=== PATIENT | male | born 1930 | race Caucasian/White ===

== ENCOUNTER 2016-11-24 14:58 | Inpatient (IN) | payer MEDICARE, BC ==
[~2016-11-24 14:58] MED LIST: ARICEPT5 M1 PO; ASPIRIN EC81 MG PO; CALCIUM 600 +1 EA10 PO; COQ-10100 M1 PO; DUREZOL5 M1 LEFT EYE; GAS-X80 M1 PO; ILEVRO1.7 ML LEFT EYE; LEVAQUIN750 M1 PO; NAMENDA10 M1 PO; NEXIUM 24HR22.3 MG PO; OMEGA 3 FISH O1 EACH PO; PRAVASTATIN SOD10 M1 PO; PRINIVIL20 M1 PO; SENIOR TABS1 EACH PO; SOY LECITHIN PO; TAMIFLU75 MG/CAP PO; VIGAMOX3 M1 LEFT EYE; VITAMIN D31000 UNI3 PO
[2016-11-24] MEDS ORDERED: VITAMIN B-121000 MC1 PO (15:34)
[2016-11-24] MEDS ORDERED: DIGESTIVE ENZY1 EAC3 PO (15:35)
[2016-11-24 16:17] LABS: URINE LEUKOCYTE ESTERASE POSITIVE (NEG); URINE PROTEIN MODERATE (NEG); URINE SPECIFIC GRAVITY 1.015 (1.003-1.030)
[2016-11-24 16:22] LABS: BASO % 0.1 % (0-2); EOS % 0.3 % (0-7); HCT-HEMATOCRIT 41.8 % (36.0-53.5); HGB-HEMOGLOBIN 14.1 gm/dl (13.5-17.0); IMMATURE GRANULOCYTES ABSOLUTE 0.05 tho/cmm (0-0.03); IMMATURE GRANULOCYTES PERCENT 0.4 % (0-0.3); LYMPH % 8.7 % (20-45); LYMPH ABSOLUTE COUNT 1.2 tho/cmm (0.8-4.5); MCH (MEAN CORPUSCULAR HGB) 32.8 pg (28.0-32.0); MCHC MEAN CORPUSCULAR HGB CONC 33.7 % (32.0-36.0); MCV (MEAN CELL VOLUME) 97.2 fl (82.0-96.0); MEAN PLATELET VOLUME 11.8 cmc (9.4-12.4); MONO % 10.3 % (0-12); MONOCYTE ABSOLUTE COUNT 1.4 tho/cmm (0.0-1.2); NEUTROPHIL ABSOLUTE COUNT 10.7 tho/cmm (1.6-8.0); NEUTROPHIL-AUTOMATED 10.7 tho/cmm (1.6-8.0); NEUTROPHILS % 80.2 % (40-80); PLATELET COUNT 191 tho/cmm (150-450); RED CELL DISTRIBUTION WIDTH 13.7 % (12.4-16.4); WHITE BLOOD COUNT 13.4 tho/cmm (4.0-10.0)
[2016-11-24 16:27] LABS: URINE APPEARANCE CLEAR; URINE BILIRUBIN SMALL (NEG); URINE BLOOD SMALL (NEG); URINE COLOR YELLOW; URINE GLUCOSE (UA) SMALL (NEG); URINE KETONE MODERATE (NEG); URINE NITRITE NEGATIVE (NEG)
[2016-11-24 16:37] LABS: ALB/GLOB RATIO 0.6 (0.8-2.0); ALBUMIN 3.2 g/dl (3.5-5.0); ALKALINE PHOSPHATASE 77 U/L (33-138); ALT/SGPT 17 U/L (12-78); ANION GAP 11 mmol/L (0-20); AST/SGOT 20 U/L (10-40); BILIRUBIN,TOTAL 1.1 mg/dl (0.0-1.5); BLOOD UREA NITROGEN 18 mg/dl (6-24); CALCIUM 9.2 mg/dl (8.5-10.5); CARBON DIOXIDE-VENOUS 29 mmol/L (22-32); CHLORIDE 104 mmol/l (96-110); CREATININE 1.15 mg/dl (0.60-1.30); GLUCOSE 140 mg/dL (70-110); LIPASE 87 U/L (73-393); POTASSIUM 3.6 mmol/L (3.7-5.1); SODIUM 140 mmol/L (135-145); eGFR VALUE FOR BLACK 67 mL/Min
[2016-11-24 16:44] LABS: URINE EPITHELIAL CELLS 0 /[HPF] (0-10); URINE MUCUS 2+; URINE RBC 0 /[HPF] (0-5); URINE WBC 0-3 /[HPF] (0-5)
[2016-11-25 05:52] LABS: BASO % 0.1 % (0-2); EOS % 2.4 % (0-7); EOSINOPHIL ABSOLUTE COUNT 0.2 tho/cmm (0.0-0.7); HCT-HEMATOCRIT 36.9 % (36.0-53.5); HGB-HEMOGLOBIN 12.5 gm/dl (13.5-17.0); IMMATURE GRANULOCYTES ABSOLUTE 0.02 tho/cmm (0-0.03); IMMATURE GRANULOCYTES PERCENT 0.2 % (0-0.3); LYMPH ABSOLUTE COUNT 1.2 tho/cmm (0.8-4.5); MCH (MEAN CORPUSCULAR HGB) 32.6 pg (28.0-32.0); MCHC MEAN CORPUSCULAR HGB CONC 33.9 % (32.0-36.0); MCV (MEAN CELL VOLUME) 96.3 fl (82.0-96.0); MEAN PLATELET VOLUME 11.6 cmc (9.4-12.4); MONO % 11.1 % (0-12); MONOCYTE ABSOLUTE COUNT 1.1 tho/cmm (0.0-1.2); NEUTROPHIL ABSOLUTE COUNT 7.3 tho/cmm (1.6-8.0); NEUTROPHIL-AUTOMATED 7.3 tho/cmm (1.6-8.0); NEUTROPHILS % 74.2 % (40-80); PLATELET COUNT 168 tho/cmm (150-450); RED BLOOD COUNT 3.83 mil/cmm (4.40-5.70); RED CELL DISTRIBUTION WIDTH 13.6 % (12.4-16.4); WHITE BLOOD COUNT 9.8 tho/cmm (4.0-10.0)
[2016-11-25 06:10] LABS: ALB/GLOB RATIO 0.7 (0.8-2.0); ALBUMIN 2.6 g/dl (3.5-5.0); ALKALINE PHOSPHATASE 76 U/L (33-138); ALT/SGPT 16 U/L (12-78); ANION GAP 12 mmol/L (0-20); AST/SGOT 19 U/L (10-40); BILIRUBIN,TOTAL 1.4 mg/dl (0.0-1.5); BLOOD UREA NITROGEN 14 mg/dl (6-24); CALCIUM 8.1 mg/dl (8.5-10.5); CARBON DIOXIDE-VENOUS 26 mmol/L (22-32); CHLORIDE 107 mmol/l (96-110); CREATININE 1.03 mg/dl (0.60-1.30); GLUCOSE 128 mg/dL (70-110); POTASSIUM 3.6 mmol/L (3.7-5.1); SODIUM 141 mmol/L (135-145); eGFR VALUE FOR BLACK 76 mL/Min
[2016-11-26 06:17] LABS: ALB/GLOB RATIO 0.6 (0.8-2.0); ALBUMIN 2.3 g/dl (3.5-5.0); ALKALINE PHOSPHATASE 62 U/L (33-138); ALT/SGPT 314 U/L (12-78); ANION GAP 10 mmol/L (0-20); AST/SGOT 529 U/L (10-40); BILIRUBIN,TOTAL 0.6 mg/dl (0.0-1.5); BLOOD UREA NITROGEN 12 mg/dl (6-24); CALCIUM 7.8 mg/dl (8.5-10.5); CARBON DIOXIDE-VENOUS 28 mmol/L (22-32); CHLORIDE 108 mmol/l (96-110); CREATININE 1.02 mg/dl (0.60-1.30); GLUCOSE 163 mg/dL (70-110); MAGNESIUM 2.1 mg/dl (1.3-2.6); POTASSIUM 4.1 mmol/L (3.7-5.1); SODIUM 142 mmol/L (135-145); eGFR VALUE FOR BLACK 77 mL/Min
[2016-11-26 06:19] LABS: HCT-HEMATOCRIT 32.7 % (36.0-53.5); HGB-HEMOGLOBIN 11.1 gm/dl (13.5-17.0); IMMATURE GRANULOCYTES ABSOLUTE 0.03 tho/cmm (0-0.03); IMMATURE GRANULOCYTES PERCENT 0.3 % (0-0.3); LYMPH % 6.5 % (20-45); LYMPH ABSOLUTE COUNT 0.7 tho/cmm (0.8-4.5); MCH (MEAN CORPUSCULAR HGB) 32.6 pg (28.0-32.0); MCHC MEAN CORPUSCULAR HGB CONC 33.9 % (32.0-36.0); MCV (MEAN CELL VOLUME) 96.2 fl (82.0-96.0); MEAN PLATELET VOLUME 11.7 cmc (9.4-12.4); MONO % 6.9 % (0-12); MONOCYTE ABSOLUTE COUNT 0.8 tho/cmm (0.0-1.2); NEUTROPHIL ABSOLUTE COUNT 9.7 tho/cmm (1.6-8.0); NEUTROPHIL-AUTOMATED 9.7 tho/cmm (1.6-8.0); NEUTROPHILS % 86.3 % (40-80); PLATELET COUNT 162 tho/cmm (150-450); RED CELL DISTRIBUTION WIDTH 13.5 % (12.4-16.4); WHITE BLOOD COUNT 11.2 tho/cmm (4.0-10.0)
--- NOTE | 2016-11-26 19:55 | NUR ---
VN/LEADER ROUNDING NOTE-PATIENT DOING FINE LAYING IN BED COMFORTABLY. HE STATES HE HAS REALLY HAD NO PAIN AND IS DOING FINE. I CONFIRMED THAT HE STILL HAS HIS CARLOS DRAIN AND HE HAS NO QUESTIONS OR CONCERNS AT THIS TIME. ASKED IF ANYTHING THAT WE CAN DO TO MAKE SURE HIS STAY HERE IS EXCELLENT AND HE STATES IT HAS BEEN GREAT SO FAR. HE DID SAY HE NEEDED ASSISTANCE TO THE BATHROOM SO I PAGED NEREIDA THE AIDE FOR HIM.
[2016-11-27 05:55] LABS: BASO % 0.1 % (0-2); EOS % 0.6 % (0-7); EOSINOPHIL ABSOLUTE COUNT 0.1 tho/cmm (0.0-0.7); HCT-HEMATOCRIT 33.8 % (36.0-53.5); HGB-HEMOGLOBIN 11.1 gm/dl (13.5-17.0); IMMATURE GRANULOCYTES ABSOLUTE 0.02 tho/cmm (0-0.03); IMMATURE GRANULOCYTES PERCENT 0.2 % (0-0.3); LYMPH % 11.9 % (20-45); LYMPH ABSOLUTE COUNT 1.2 tho/cmm (0.8-4.5); MCHC MEAN CORPUSCULAR HGB CONC 32.8 % (32.0-36.0); MCV (MEAN CELL VOLUME) 97.4 fl (82.0-96.0); MEAN PLATELET VOLUME 11.4 cmc (9.4-12.4); MONO % 10.1 % (0-12); NEUTROPHIL ABSOLUTE COUNT 7.9 tho/cmm (1.6-8.0); NEUTROPHIL-AUTOMATED 7.9 tho/cmm (1.6-8.0); NEUTROPHILS % 77.1 % (40-80); PLATELET COUNT 172 tho/cmm (150-450); RED BLOOD COUNT 3.47 mil/cmm (4.40-5.70); RED CELL DISTRIBUTION WIDTH 13.8 % (12.4-16.4); WHITE BLOOD COUNT 10.3 tho/cmm (4.0-10.0)
[2016-11-27 06:24] LABS: ALB/GLOB RATIO 0.7 (0.8-2.0); ALBUMIN 2.6 g/dl (3.5-5.0); ALKALINE PHOSPHATASE 85 U/L (33-138); ALT/SGPT 287 U/L (12-78); ANION GAP 10 mmol/L (0-20); AST/SGOT 292 U/L (10-40); BILIRUBIN,TOTAL 0.8 mg/dl (0.0-1.5); BLOOD UREA NITROGEN 9 mg/dl (6-24); CALCIUM 8.2 mg/dl (8.5-10.5); CARBON DIOXIDE-VENOUS 31 mmol/L (22-32); CHLORIDE 108 mmol/l (96-110); CREATININE 1.18 mg/dl (0.60-1.30); GLUCOSE 90 mg/dL (70-110); POTASSIUM 3.8 mmol/L (3.7-5.1); SODIUM 145 mmol/L (135-145); eGFR VALUE FOR BLACK 65 mL/Min
[2016-11-27] MEDS ORDERED: AUGMENTIN 875-1 EAC2 PO (12:02)
[2016-11-27] MEDS ORDERED: NORCO 5-325 TA1 EACH PO (12:02)
== END 2016-11-27 13:45 | disposition home health service (06) | DRG 418 ==
LOC: EDMED 14:58 → EMR2 19:37 → 5WD 21:15 → ORW 11-25 09:54 → 5WD 11-25 13:20
PROVIDERS: Emergency Medicine; Internal Medicine; Surgery; ADMIT Hospitalist
PROC: 0FT44ZZ Resection of Gallbladder, Percutaneous Endoscopic Approach (ICD-10-PCS; principal; 2016-11-25)
DX: K81.0 Acute cholecystitis (principal); D62 Acute posthemorrhagic anemia; R65.10 Systemic inflammatory response syndrome (SIRS) of non-infectious origin without acute organ dysfunction; Z93.0 Tracheostomy status; F03.90 Unspecified dementia, unspecified severity, without behavioral disturbance, psychotic disturbance, mood disturbance, and anxiety; E87.5 Hyperkalemia; E78.5 Hyperlipidemia, unspecified; K21.9 Gastro-esophageal reflux disease without esophagitis; G47.30 Sleep apnea, unspecified; I10 Essential (primary) hypertension; E87.6 Hypokalemia; Z86.73 Personal history of transient ischemic attack (TIA), and cerebral infarction without residual deficits; Z79.82 Long term (current) use of aspirin
CPT/HCPCS: J0690; J2543; J7030; J7050; Q9967